=== PATIENT | female | born 1985 | race Caucasian/White ===

== ENCOUNTER 2024-08-01 01:21 | Emergency (ER) | payer SELFPAY ==
[2024-08-01 01:22] VITALS: BMI 40.7
[2024-08-01 01:54] VITALS: BP 142/84; PULSE 98; RESP 18; TEMP 36.9; O2SAT 100
--- NOTE | 2024-08-01 02:10 | XR_ITS ---
Examination: CT abdomen and pelvis without contrast. Coronal 3-D reconstructions. Sagittal 2-D reconstructions. Date and time of exam:August 01, 2024 0418 hours INDICATIONS: Intermittent flank pain beginning 3 days ago, history kidney stones CTDI: vol (mGy): 17.3 DLP: (mGycm): 979 Technique: Axial images of the abdomen have been obtained, 3 mm slice thickness Intravenous contrast material has not been administered. Low dose protocols were performed. One or more of the following dose reduction techniques were used; automated exposure control, adjustment of the mA and/or KV according to patient size, use of iterative reconstruction technique. Findings: No focal liver or splenic lesions Absent gallbladder No pancreatic mass 20 mm calculus in the right renal pelvis with mild hydronephrosis Mild left hydronephrosis secondary to 7 mm distal left ureterovesical junction calculus Aorta normal size No bowel obstruction No diverticulitis No pericecal inflammatory change IMPRESSION: 20 mm calculus in the right renal pelvis with mild right hydronephrosis Mild left hydronephrosis, 7 mm distal left ureterovesical junction calculus
[2024-08-01 02:43] LABS: Collection Type, Urine Clean Catch
[2024-08-01 03:10] LABS: Basophils # (Auto) 0.1 Thou/mm3 (0.0-0.2); Basophils % (Auto) 1 % (0-2.5); Eosinophils # (Auto) 0.1 Thou/mm3 (0.0-0.5); Eosinophils % (Auto) 1 % (0-10); Hematocrit 31.5 % (36.0-46.0); Hemoglobin 10.2 g/dL (12.0-16.0); Immature Granulocytes % (Auto) 1 % (0-0); Lymphocytes # (Auto) 1.5 Thou/mm3 (1.0-4.8); Lymphocytes % (Auto) 11 % (10-50); Mean Corpuscular HGB Conc 32.4 g/dl (31.0-37.0); Mean Corpuscular Hemoglobin 25.4 pg (25.0-35.0); Mean Corpuscular Volume 78 fL (80-100); Monocytes # (Auto) 1.4 Thou/mm3 (0.0-0.8); Monocytes % (Auto) 11 % (0-12); Neutrophils # (Auto) 9.8 Thou/mm3 (1.8-7.7); Neutrophils % (Auto) 76 % (37-80); Nucleated Red Blood Cell % 0 /100 WBC (0); Platelet Count 342 Thou/mm3 (140-440); RDW Standard Deviation 43.2 fL (36.4-46.3); Red Blood Count 4.02 Miln/mm3 (4.00-5.20); White Blood Count 12.9 Thou/mm3 (3.6-11.0)
[2024-08-01] MEDS: KETOROLAC INJ 60 MG/2 ML VIAL IM (03:16)
[2024-08-01] MEDS: ONDANSETRON ODT 4 MG TABRAP PO (03:16)
[2024-08-01 03:40] LABS: Bacteria,Urine Rare; Bilirubin,Urine Negative (Negative); Blood,Urine 3+ (Negative); Clarity,Urine Turbid (Clear/Hazy); Color,Urine Yellow (Lt Yel-Yel); Glucose, Urine Negative (Negative); Hyaline Casts,Urine < 1 /hpf (0-1); Ketones,Urine Negative (Negative); Leukocyte Esterase,Urine Positive (Negative); Nitrite,Urine Negative (Negative); Protein,Urine 2+ (Neg - Trace); RBC,Urine 80 /hpf (0-3); Specific Gravity,Urine 1.025 (1.001-1.035); Squamous Epithelial Cell,Urine 5 /hpf (0-5); Urobilinogen,Urine Negative mg/dL (0.0-1.0); WBC,Urine 28 /hpf (0-5)
[2024-08-01 03:41] LABS: Culture Indicated,Urine Yes
[2024-08-01 03:42] LABS: HCG Qualitative,Urine Negative
[2024-08-01 03:54] LABS: Alanine Aminotransferase 14 U/L (10-49); Albumin, Serum 4.1 gm/dL (3.5-5.0); Albumin/Globulin Ratio 1.4 (1.2-2.2); Alkaline Phosphatase 70 U/L (46-116); Anion Gap 8 (7-16); Aspartate Amino Transferase 17 U/L (0-34); BUN/Creatinine Ratio 12 Ratio (12-20); Bilirubin,Total 0.3 mg/dL (0.3-1.2); Blood Urea Nitrogen 11 mg/dL (9-23); Calcium 9.5 mg/dL (8.3-10.6); Calcium (Corrected) 9.5 mg/dL (8.5-10.1); Carbon Dioxide 27.5 mMol/L (20.0-31.0); Chloride 106 mMol/L (98-107); Creatinine (Component) 0.9 mg/dL (0.6-1.3); Estimated Creatinine Clearance 113.7 mL/min (>60); Glucose 150 mg/dL (74-106); Lipase 33 U/L (12-53); Osmolality,Calculated 283 (275-295); Potassium 4.9 mMol/L (3.4-5.1); Sodium 141 mMol/L (136-145); Total Protein 7.1 gm/dL (5.7-8.2); eGFR > 60 See Note
--- NOTE | 2024-08-01 05:08 | PRELIM_ITS ---
CT scan of the abdomen and pelvis without intravenous contrast (axial sections with sagittal and coronal reformats) August 01, 2024 0418 hours Clinical History: L Flank pain No prior study is available for comparison. Findings: Bibasilar dependent atelectasis is present. A small hiatal hernia is present. There is a 8x4 mm obstructing calculus in the left ureterovesical junction (axial images 197/269 ) causing mild hydroureteronephrosis and periureteric/perinephric fat stranding. A 2x1 cm right renal pelvic calculus is seen with mild hydronephrosis (axial images 100/269).The gallbladder is surgically absent. The liver, pancreas, spleen and adrenals are unremarkable on this noncontrast study. No evidence of bowel obstruction. A moderate amount of fecal material is present in the colon. The appendix is not definitively visualized; however, there is no evidence of inflammatory process in the right lower quadrant to suggest appendicitis. There is no mesenteric or retroperitoneal adenopathy. The urinary bladder is incompletely distended at the time of the examination and appears mildly thick walled. The uterus and adnexa are unremarkable. There is no free fluid or free air. Calcific densities are seen in the pelvis, likely representing phleboliths. The osseous structures are unremarkable. Impression: 8x4mm obstructing calculus in the left ureterovesical junction causing mild hydroureteronephrosis. 2x1 cm right renal pelvic calculus is seen with mild hydronephrosis. Report Electronically Signed By: Cordelia Curtis 08/01/2024 5:07:19 AM [EST]
[2024-08-01 05:14] VITALS: BP 137/87; PULSE 79; RESP 18; TEMP 36.6; O2SAT 98
[2024-08-01] MEDS: MORPHINE SULF INJ 10 MG/ML VIAL 5 MG IM (05:18)
--- NOTE | 2024-08-01 05:57 | PD.EDRME ---
Rapid Medical Screening Exam RME Arrival date/time: 08/01/24 01:21 39F with history of kidney stones presents to ED with 1 day of L flank pain and N/V. Chief Complaint: Back Pain/Injury Time Seen by Provider: 08/01/24 02:10 Vital signs: Vital Signs Temperature 98.4 F 08/01/24 01:54 Pulse Rate 98 08/01/24 01:54 Respiratory Rate 18 08/01/24 01:54 Blood Pressure 142/84 H 08/01/24 01:54 Pulse Oximetry (%) 100 08/01/24 01:54 Oxygen Delivery Method Room Air 08/01/24 01:54
[2024-08-01 09:18] VITALS: BP 123/79; PULSE 63; RESP 19; TEMP 36.7; O2SAT 100
--- NOTE | 2024-08-01 09:34 | EDNOTE_ITS ---
ED Back Injury Pain RME/HPI General Chief Complaint: Back Pain/Injury Stated Complaint: LEFT KIDNEY PAIN, HISTORY KIDNEY STONES Time Seen by Provider: 08/01/24 02:10 Arrival date/time: 08/01/24 01:21 RME / HPI RME / HPI Narrative: 08/01/24 01:21 39F with history of kidney stones presents to ED with 1 day of L flank pain and N/V. DR. BERMEO MAIN ED EVALUATION: 39 year old female with history of kidney stones, colon [place] 6 years ago treated in [place], [place] presents to the ED for evaluation of left flank pain beginning at 01:00 AM. Described as colicky in sensation that is located most to the left flank without radiation, rating as moderate-severe. Accompanied by nausea and vomiting. Denies fevers, chills, chest pain, cough, shortness of breath, diarrhea, constipation. Denies any trauma/injury to the area. Reportedly has consulted with her PCP at [facility] and a referral to neurology was sent instead of urologist. States at this time she has yet to consult with urologist. Related Data Previous Rx's ?Medication ?Instructions ?Recorded cephalexin 500 mg capsule 500 mg PO QID #28 caps 08/01 hydrocodone 5 mg-acetaminophen 325 1 tab PO Q6H PRN pa in #30 tabs 08/01/24 mg tablet tamsulosin 0.4 mg capsule (Flomax) 0.4 mg PO QDAY #10 caps 08/01/24 Allergies Allergy/AdvReac Type Severity Reaction Status Date / Time No Known Allergies Allergy Verified 08/01/24 01:22 Review of Systems Review of Systems Narrative Review of Systems: Constitutional: DENIES; Fevers Eyes: DENIES; Loss of vision Head/Ear/Nose: DENIES; Loss of hearing Throat: DENIES; Dysphagia Cardiovascular: DENIES; Chest pain, dyspnea or syncope Respiratory: DENIES; Shortness of breath Gastrointestinal: SEE HPI +abd pain, nausea, vomiting. DENIES; Rectal bleeding or melena. Genitourinary: DENIES; Dysuria (painful or difficult urination) Musculoskeletal: SEE HPI +left flank/back pain. DENIES; Arthralgia (pain in a joint),; Skin: DENIES; Rash Neurological: DENIES; Loss of function or movement Psychiatric: DENIES; recent major life stressor, emotional problem, illicit drug use or abuse Endocrinology: DENIES; Weight change Hematologic/Lymphatic: DENIES; Abnormal bruising Allergic/Immunologic: DENIES; Urticaria (hives) Past Medical History Past Medical History GASTROINTESTINAL: Positive Gall Bladder Disease GENITOURINARY: Positive Kidney Stones HEMATOLOGIC: Positive Anemia OTHER HISTORY: Positive Blood Transfusions Surgical History SURGICAL: Negative Nephrectomy, Joint Replacement, Neurologic Surgery or Ma stectomy Social History SMOKING STATUS: Never smoker Course Quality Measures none Orders Category Date Time Status Insert IV NOW Care 08/01/24 11:03 Active Referral - Product Lister Stat Cons 08/01/24 11:26 Active Transfer to another facility [Transfer/Discharge] Stat Discharge 08/01/24 09:[address] abdomen pelvis wo con Stat Exams 08/01/24 02:10 Completed CBC Stat Lab 08/01/24 02:50 Completed CMP [Comprehensive Metabolic Panel] Stat Lab 08/01/24 02:50 Completed HCG Qualitative,Urine Stat Lab 08/01/24 02:29 Completed Lipase Stat Lab 08/01/24 02:50 Completed Urinalysis, C/S if Indicated Stat Lab 08/01/24 02:29 Completed Urine Culture Stat Lab 08/01/24 02:29 Received Ketorolac Inj [Toradol Inj] Med 08/01/24 11:52 Discontinued 30 mg IVP X1 ONE Ketorolac Inj [Toradol Inj] Med 08/01/24 02:10 Discontinued 60 mg IM X1 ONE Morphine Inj Med 08/01/24 05:06 Discontinued 5 mg IM X1 ONE Ondansetron Odt [Zofran Odt] Med 08/01/24 02:10 Discontinued 4 mg PO X1 ONE Sodium Chloride 0.9% 1000 ml [Ns] 1,000 ml Med 08/01/24 12:16 Discontinued IV 999 mls/hr cefTRIAXone/D5w 1gm IV premix [Rocephin/D5w 1gm IV Med 08/01/24 12:17 Discontinued premix] 1 gm in 50 ml IV X1 Vital Signs Vital signs: Vital Signs Temperature 98.4 F 08/01/24 01:54 Pulse Rate 98 08/01/24 01:54 Respiratory Rate 18 08/01/24 01:54 Blood Pressure 142/84 H 08/01/24 01:54 Pulse Oximetry (%) 100 08/01/24 01:54 Oxygen Delivery Method Room Air 08/01/24 01:54 Pulse ox is 100% on room air which is adequate. Back Pain / Injury MDM Narrative MDM Narrative:: I, Kelsey Sewell, am scribing for and in the presence of Dr. Bermeo. Patient evidently has been sitting here for many hours before they put her in her room but was found to have 2 kidney stones 1 on the left side where she is having pain at the left UV junction which is 8 mm. Patient arrived at 1 in the morning today and has been here for 11 hours and is still having pain. UA came back positive for hematuria and some pyuria. Chemistry panel is unremarkable to BUN 11 creatinine 0.9 glucose of 150. White count is 12.9 hemoglobin is 10.2. She does have microcytic indices. Patient was moved from the lobby into a room where I evaluated her where she is fairly comfortable still complaining of some left-sided pain. She was fairly comfortable not asking for any pain medicine at that time but later she is asking for more pain medicine and the nurse just approach me and will give us more Toradol and morphine. Because the patient still having pain after 11 hours and the stone is greater than 7 mm presuming it stuck even though there is mild hydro. We have no urology services available at this time so I placed an order to transfer her spoke with our transfer nurse. [facility] just called back Damari and discussed the case to get urological services involved . Should be noted this patient has been seen as an outpatient and worked up with kidney stones and evidently they referred her to a neurologist by accident so the patient's care has been delayed. So patient needs to be admitted for intractable pain and retained stone as of this time. Note the right sided pelvic stone which is 2 x 1 cm is probably not causing symptoms and is not an issue today although it will need follow-up. Patient was observed in the emergency department up to 1445 hrs. and she is much more comfortable since the last round of medicines. She got a liter of fluid. Transfer nurse got a hold of [facility] I spoke with Damari the transfer nurse there initially and then she called back and felt this patient can be managed as an outpatient at their urology clinic. They sent the information which was passed onto the patient and is also documented on the chart. Packet of information is going to go with the patient. At this time the patient given Flomax to help will relax the ureter. The recent cephalexin to cover for any urinary tract infection and 3 some hydrocodone for cover any pain that is not controlled. Patient knows return if getting worse or follow-up with the urology clinic in [place] as discussed and directed. She we know this patient waited a long time in the waiting before they put her back into her room and she is comfortable with both her symptoms and without outpatient follow-up plan. She was also given a strainer. Patient data External records reviewed:: [facility] previous records (I reviewed ED visit on 12/29/2023 for kidney stone) Clinical information provided by:: patient Social determinants that could affect healthcare access:: none Patient has the following chronic illnesses:: Kidney stones, hx of colon CA 6 years ago How is presenting disease/condition affected by chronic disease/condition?: exacerbated by Evaluation data The following diagnostics were reviewed and interpreted by me:: lab results and radiology exam(s) Lab and/or radiology exams considered but not ordered:: None Interpretation Summary: Ordering Physician: Date of Service: Procedure(s): Accession Number(s): cc: ~ CT scan of the abdomen and pelvis without intravenous contrast (axial sections with sagittal and coronal reformats) August 01, 2024 0418 hours Clinical History: L Flank pain No prior study is available for comparison. Findings: Bibasilar dependent atelectasis is present. A small hiatal hernia is present. There is a 8x4 mm obstructing calculus in the left ureterovesical junction (axial images 197/269 ) causing mild hydroureteronephrosis and periureteric/perinephric fat stranding. A 2x1 cm right renal pelvic calculus is seen with mild hydronephrosis (axial images 100/269).The gallbladder is surgically absent. The liver, pancreas, spleen and adrenals are unremarkable on this noncontrast study. No evidence of bowel obstruction. A moderate amount of fecal material is present in the colon. The appendix is not definitively visualized; however, there is no evidence of inflammatory process in the right lower quadrant to suggest appendicitis. There is no mesenteric or retroperitoneal adenopathy. The urinary bladder is incompletely distended at the time of the examination and appears mildly thick walled. The uterus and adnexa are unremarkable. There is no free fluid or free air. Calcific densities are seen in the pelvis, likely representing phleboliths. The osseous structures are unremarkable. Impression: 8x4mm obstructing calculus in the left ureterovesical junction causing mild h ydroureteronephrosis. 2x1 cm right renal pelvic calculus is seen with mild hydronephrosis. Report Electronically Signed By: Cordelia Curtis 08/01/2024 5:07:19 AM [EST] Medications / Prescriptions Medications or Prescriptions considered but not ordered:: None Medication administrations:: Medication Administration History Discontinued Medications Sodium Chloride (Ns) 1,000 mls @ 999 mls/hr IV .Q1H1M ONE Stop: 08/01/24 13:16 Last Admin: 08/01/24 12:53 Dose: 999 mls/hr Documented By: TORSTEN Ceftriaxone Sodium/Dextrose (Rocephin/D5w 1gm Iv Premix) 1 gm in 50 mls @ 100 mls/hr IV X1 ONE Stop: 08/01/24 12:46 Last Infusion: 08/01/24 13:25 Dose: Infused Documented By: Admin: 08/01/24 12:53 Dose: 100 mls/hr Documented By: TORSTEN Ketorolac Tromethamine (Ketorolac Inj 60 Mg/2 Ml Vial) 60 mg IM X1 ONE Stop: 08/01/24 02:11 Last Admin: 08/01/24 03:16 Dose: 60 mg Documented By: LEANDRA Ketorolac Tromethamine (Ketorolac Inj 30 Mg/Ml Vial) 30 mg IVP X1 ONE Stop: 08/01/24 11:53 Last Admin: 08/01/24 12:03 Dose: 30 mg Documented By: TORSTEN Morphine Sulfate (Morphine Sulf Inj 10 Mg/Ml Vial) 5 mg IM X1 ONE Stop: 08/01/24 05:07 Last Admin: 08/01/24 05:18 Dose: 5 mg Documented By: EMRE Ondansetron HCl (Ondansetron Odt 4 Mg Tabrap) 4 mg PO X1 ONE; Protocol Stop: 08/01/24 02:11 Last Admin: 08/01/24 03:16 Dose: 4 mg Documented By: LEANDRA See above Consultations Consultation(s) initiated? (list below): Yes Diagnosis Differential diagnosis back pain/injury: renal colic, pyelonephritis and other (renal stone, UTI) Most likely diagnosis given after review of the tests above:: Left renal stone distal ureter 8 mm with some mild hydro Admission Indicated Admission indicated?: not indicated Admission Request Was there a request for admission?: No Disposition Plan Disposition Plan: Discharge (Initially want admit this patient for intractable pain states she has been having pain for 1112 hrs. since has been here but she is now comfortable and will go home see MDM above for details) Discharge Attestation Discharge Attestation: The patient and all family members were given an opportunity to ask questions and understood the discharge instructions. Discharge instructions specifically effects, indications for sooner follow up or return to the emergency department, and the expected course of current diagnosis. Patient condition: Stable Discharge Plan Plan Patient Disposition: HOME (Self Care) Prescriptions/Referrals Prescriptions/Med Rec: New hydrocodone-acetaminophen 5-325 mg tablet 1 tab PO Q6H MDD 8 PRN (Reason: pain) Qty: 30 0RF cephalexin 500 mg capsule 500 mg PO QID Qty: 28 0RF tamsulosin [Flomax] 0.4 mg capsule 0.4 mg PO QDAY Qty: 10 0RF Referrals: Thaddeus Hamilton MD [Primary Care Provider] - In 1 week Problem List Clinical Impression: Calculus of distal left ureter, Calculus of right kidney, Urinary tract infection Patient/Caregiver Discharge Instructions Additional Instructions: As discussed you have a kidney stone on the left distal ureter at the UV junction which is 8 mm. A prescription for Flomax has been given which will help dilate or relax the ureter and promote passage of the stone. There is also pain medicine to help you be comfortable. Is an antibiotic to cover the urinary tract infection. We made a referral to community urological specialist in [place] the address is [address] [place] [id number] phone number is area code [phone] They should call and make an appointment early next week but if you do not hear from them give them a call at the number above. If you are getting worse please return or seek health care as we discussed. Print Language: Bengali Stand Alone Forms: [employer]acy Award Info., Patient Portal Info Letter
[2024-08-01] MEDS: KETOROLAC INJ 30 MG/ML VIAL IVP (12:03)
[2024-08-01 12:24] VITALS: BP 119/62; PULSE 72; RESP 17; TEMP 36.6; O2SAT 100
--- NOTE | 2024-08-01 12:30 | PC.CM ---
1150 Damari from [facility] called and wanted to speak to Dr. Bermeo. I forwarded call to him. I started packet and made a CD. [id number] I received a referral to transfer patient for kidney stones. I contacted [facility] and I initiated a transfer and I faxed over paperwork.
[2024-08-01] MEDS: cefTRIAXone/D5w 1gm IV premix 1 GM/50 ML BAG IV (12:53)
[2024-08-01] MEDS: SODIUM CHLORIDE 0.9% 1000 ML 1,000 ML 999 ML IV (12:53)
[2024-08-01 14:24] VITALS: BP 123/80; PULSE 72; RESP 18; TEMP 36.6; O2SAT 99
== END 2024-08-01 15:06 | disposition home or self-care (01) ==
PROVIDERS: Physician Assistant; Emergency Provider Emergency Medicine; PCP Family Medicine
DX: N13.6 Pyonephrosis (principal)
CPT/HCPCS: 36415; 74176; 80053; 81001; 81025; 83690; 85025; 87086; 96365; 96372; 96375; 99284; J0696; J1885; J2270; J7030; Q0162